=== PATIENT | male | born 1935 | race Caucasian/White ===

== ENCOUNTER 2016-08-21 20:40 | Emergency (ER) | payer MEDICARE, OTHER ==
[2016-08-21 19:01] LABS: BASOPHILS 0.4 %; BASOPHILS ABSOLUTE 0.04 10/3/uL (0.0-0.16); EOSINOPHILS 0.1 %; EOSINOPHILS ABSOLUTE 0.01 10/3/uL (0.0-0.53); ER CBC TAT 0 Hrs 05 Mins; HEMATOCRIT 41.6 % (40.0-51.0); HEMOGLOBIN 14.3 g/dL (13.6-17.8); IMMATURE GRANULOCYTES 0.1 %; IMMATURE GRANULOCYTES ABSOLUTE 0.01 10/3/uL (0.0-0.11); LYMPHOCYTES ABSOLUTE 0.86 10/3/uL (0.67-4.30); MANUAL DIFF NO %; MEAN CORPUS HGB CONC 34.4 g/dL (32.0-36.0); MEAN CORPUSCULAR HEMOGLOB 31.7 pg (26.0-34.0); MEAN CORPUSCULAR VOLUME 92.2 fL (80-100); MEAN PLATELET VOLUME 11.3 fL (9.2-13.0); MONOCYTES 5.8 %; MONOCYTES ABSOLUTE 0.55 10/3/uL (0.21-1.20); NEUTROPHILS 84.6 %; NEUTROPHILS ABSOLUTE 8.05 10/3/uL (2.02-8.40); PLATELET COUNT 265 10/3/uL (150-400); RBC DISTRIBUTION WIDTH 13.7 % (12.0-16.0); RED CELL COUNT 4.51 10/6/uL (4.7-6.1); WHITE BLOOD CELLS 9.5 10/3/uL (4.5-10.5)
[2016-08-21 19:30] LABS: BUN (BLOOD UREA NITROGEN) 14 MG/DL (6-23); CHLORIDE, SERUM 99 MMOL/L (96-112); CO2 (CARBON DIOXIDE) 28 MMOL/L (24-34); CREATININE 0.97 MG/DL (0.70-1.30); GFR AFRICAN AMERICAN 85 ML/MIN (>=60); GFR NON AFRICAN AMERICAN 73 ML/MIN (>=60); POTASSIUM, SERUM 3.9 MMOL/L (3.5-5.3); SODIUM, SERUM 135 MMOL/L (135-148); TROPONIN I <0.02 NG/ML (<0.05)
[2016-08-21 19:31] LABS: CALCIUM, SERUM 9.6 MG/DL (8.5-10.4); CHEST PAIN PROFILE TAT 0 Hrs 34 Mins; GLUCOSE, SERUM 117 MG/DL (60-99)
[~2016-08-21 20:40] MED LIST: ASAB PO; AVODART PO; BENICAR PO; CENTRUM PO; EZFE 200200 MG PO; FISH OIL OTC PO; FISH-EPA1000 MG PO; FLONASE NAS; GABAPENTIN; LEVOTHYROXIN50 MCG; LIPITOR20 PO; MAGNESIUM OTC PO; PRILOSEC40 MG PO; SINGULAIR1 PO; SYN.025B PO; ULTRAM50 PO; VOLTAREN1 %; XYZAL5 MG PO; [UNRECOGNIZED DRUG - REMARK] PO
[2016-08-21 21:30] LABS: INTERNATIONAL NORMAL RATI 1.1 UNITS (-); PARTIAL THROMBO TIME 28.4 SEC (22.5-37.2); PROTIME (NOT ORD) 13.8 SEC (12.0-14.5)
[2016-08-21 21:35] LABS: ALBUMIN 3.9 G/DL (3.5-5.0); DIRECT BILIRUBIN 0.1 MG/DL (0.0-0.4); INDIRECT BILIRUBIN(NOT ORDER) 0.4 MG/DL (0.1-0.9); TOTAL BILIRUBIN 0.5 MG/DL (0-1.2); TOTAL PROTEIN 8.7 G/DL (6.0-8.5)
[2016-08-21] MEDS ORDERED: BENICAR40 PO (23:49)
[2016-08-21] MEDS ORDERED: GABAPENTIN TOP (23:49)
[2016-08-21] MEDS ORDERED: SYN075 PO (23:49)
[2016-08-21] MEDS ORDERED: LIPITOR20 PO (23:49)
[2016-08-21] MEDS ORDERED: AVODART PO (23:49)
[2016-08-21] MEDS ORDERED: FLONASE NAS (23:50)
[2016-08-21] MEDS ORDERED: XYZAL5 MG PO (23:50)
[2016-08-21] MEDS ORDERED: SINGULAIR1 PO (23:50)
[2016-08-21] MEDS ORDERED: PRILOSEC40 MG PO (23:50)
[2016-08-21] MEDS ORDERED: MAGNESIUM 300 MG PO (23:51)
[2016-08-21] MEDS ORDERED: MULTIVIT/MIN PO (23:51)
[2016-08-21] MEDS ORDERED: VOLTAREN1 % TOP (23:52)
[2016-08-21] MEDS ORDERED: FISH-EPA1000 MG PO (23:52)
[2016-08-21] MEDS ORDERED: ASAB PO (23:52)
== END 2016-08-22 00:09 | disposition home or self-care (01) ==
LOC: ER 20:40
PROVIDERS: Emergency Medicine; Nurse Practitioner Acute Care
DX: R10.84 Generalized abdominal pain (principal); R10.32 Left lower quadrant pain; J44.9 Chronic obstructive pulmonary disease, unspecified; I10 Essential (primary) hypertension; K21.9 Gastro-esophageal reflux disease without esophagitis; Z85.038 Personal history of other malignant neoplasm of large intestine; Z79.82 Long term (current) use of aspirin; Z79.899 Other long term (current) drug therapy
CPT/HCPCS: 71020; 74176; 80048; 80076; 83605; 83690; 83735; 84484; 85025; 85610; 85730; 96374; 99285; J1980; J2405